=== PATIENT | female | born 1990 | race African-American/Black ===

== ENCOUNTER 2017-10-05 16:51 | Emergency (ER) | payer OTHER ==
[~2017-10-05 16:51] MED LIST: FLEXERIL 5MG TAB5 MG PO; GOOD SENSE IBU200 MG PO; IBUPROFEN800 M1 PO; LAMOTRIGINE ER50 MG PO; LAMOTRIGINE200 M1 PO; NEXPLANON68 MG; NOVAPLUS V0.09 MG/Ac INH; TYLENOL XSTR500 MG PO; VITAMIN D50000 IU PO
--- NOTE | 2017-10-05 17:50 | ED PSYCHIATRIC COMPLAINT ---
See Addendum History of Present Illness General Chief Complaint: Psychiatric Related Complaint Stated Complaint: BIBA FOR +SI Source: patient Exam Limitations: no limitations Vital Signs & Intake/Output Vital Signs & Intake/Output Vital Signs Date Time Temp Pulse Resp B/P B/P Pulse O2 O2 Flow FiO2 Mean Ox Delivery Rate 10/06 0827 98.0 95 18 118/64 98 Room Air 10/06 0609 99.1 100 18 141/78 98 Room Air 10/05 2308 99.3 73 16 130/71 99 Room Air 10/05 1959 99.0 95 20 150/89 100 Room Air 10/05 1725 98 Room Air 10/05 1717 98.7 77 20 117/72 99 Room Air ED Intake and Output 10/06 0000 10/05 1200 Intake Total 0 Output Total Balance 0 Intake, Oral 0 Allergies Uncoded Allergies: BED BUG VENUM (Severe, BODY EDEMA 03/09/12) FAKE JEWELERY (12/09/10) Triage Note: BIBA FROM HOME FOR SI. STATES DOESNT HAVE PLAN Triage Nurses Notes Reviewed? yes : No Patient currently breastfeeds: No HPI: Patient presents for evaluation of suicide ideation. Patient states that this afternoon while at work she "cold out" apparently in some despair. Her boss came to speak with her and she admitted that she was feeling suicidal. Her boss then called 911. Patient admits to being somewhat irritated at the fact that she was brought to the emergency department. She states she had no plan to commit suicide specifically and felt she would simply go home and clean and watch TV. (Naina RODRIGUEZ,Chris Anaya) Reconcile Medications Cholecalciferol (Vitamin D3) (Vitamin D3) 400 UNIT TABLET 1 TAB PO DAILY VITAMIN SUPPORT (Reported) Citalopram Hydrobromide (Citalopram HBr) 20 MG TABLET 1 TAB PO DAILY MENTAL HEALTH (Reported) Lamotrigine (Lamotrigine ER) 300 MG TAB.ER.24 1 TAB PO QPM MENTAL HEALTH ( Reported) Metformin HCl 500 MG TABLET 1 TAB PO BID DIABETES (Reported) Prazosin HCl 1 MG CAPSULE 3 CAP PO QPM MENTAL HEALTH (Reported) (Chris Baxter DO) Past History Travel History Traveled to [place] past 21 day No Medical History Any Pertinent Medical History? 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 No (Naina RODRIGUEZ,Chris Anaya) Review of Systems Review of Systems Constitutional: Reports: no symptoms. EENTM: Reports: no symptoms. Respiratory: Reports: no symptoms. Cardiovascular: Reports: no symptoms. GI: Reports: no symptoms. Genitourinary: Reports: no symptoms. Musculoskeletal: Reports: no symptoms. Skin: Reports: no symptoms. Neurological/Psychological: Reports: see HPI. Hematologic/Endocrine: Reports: no symptoms. Immunologic/Allergic: Reports: no symptoms. All Other Systems: Reviewed and Negative (Naina RODRIGUEZ,Chris Anaya) Physical Exam Physical Exam General Appearance: SEE BELOW Neurological/Psychiatric: SEE BELOW Comments: General: Alert, calm, cooperative Head: Normocephalic, atraumatic Eyes: Normal inspection, no nystagmus, EOMI Ears: Normal inspection Nose: Normal inspection Throat: Moist mucosa Neck: Supple, no goiter Heart: Regular rate and rhythm, no murmurs rubs or gallops Lungs: Clear to auscultation bilaterally with good air entry Abdomen: Soft nontender nondistended, normal bowel sounds Chest: Nontender Extremities: Normal range of motion grossly, no tremors present, no cyanosis clubbing or edema of the upper extremities Neurologic: cranial nerves II through XII grossly intact, speech clear, gait normal Psychiatric: No apparent delusions or hallucinations, no pressured speech or thought blocking SAD PERSONS Done? DEFERRED TO CRISIS (Naina RODRIGUEZ,Chris Anaya) Progress Differential Diagnosis: DEPRESSION, ANXIETY, BIPOLAR DISORDER, PERSONALITY DISORDER Plan of Care: Orders Procedure Date/time Status Regular Diet 10/06 B Active ETHANOL 10/05 1842 Complete CBC WITHOUT DIFFERENTIAL 10/05 1842 Complete BASIC METABOLIC PANEL 10/05 1842 Complete Continuous Observation Monitor 10/05 1750 Active ED CRISIS PSYCH CONSULT 10/05 175 Active URINE DRUG SCREEN FOR ER ONLY 10/05 1728 Complete Current Medications Sig/Lady Start time Last Medication Dose Stop Time Status Admin Cholecalciferol 400 IU DAILY 10/06 899 UNVr 10/06 (Vitamin D) 08 Citalopram 20 MG DAILY 10/06 899 UNVr 10/06 Hydrobromide 0844 (Celexa) Lamotrigine 300 MG DAILY 10/06 899 CAN (LaMICtal) Lamotrigine 150 MG BID 10/06 899 UNVr 10/06 (LaMICtal) 0844 Metformin HCl 500 MG 0800,1700 10/06 08 UNVr 10/06 (Glucophage) 0844 Prazosin HCl 3 MG AT BEDTIME 10/05 2099 UNVr 10/05 (Minipress 5 MG) 220 Laboratory Tests 10/05/17 1910: Anion Gap 11, Estimated GFR > 60, BUN/Creatinine Ratio 5.6 L, Glucose 97, Calcium 9.1, CBC w Diff NO MAN DIFF REQ, RBC 4.29, MCV 86.8, MCH 29.5, MCHC 33.9 , RDW 12.7, MPV 7.2 L, Gran % 54.5, Lymphocytes % 38.7, Monocytes % 4.8, Eosinophils % 1.4, Basophils % 0.6, Absolute Granulocytes 3.2, Absolute Lymphocytes 2.3, Absolute Monocytes 0.3, Absolute Eosinophils 0.1, Absolute Basophils 0, Serum Alcohol < 10.0 10/05/17 1730: Urine Opiates Screen < 100, Methadone Screen 50, Barbiturate Screen < 60, Ur Phencyclidine Scrn < 6.00, Amphetamines Screen < 100, U Benzodiazepines Scrn < 85, Urine Cocaine Screen < 50, Urine Cannabis Screen < 5.00 Comments: 10/05/2017 7:47:30 PM 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 (Naina RODRIGUEZ,Chris Anaya) Hand-Off Endorsed To: Chris Baxter DO Endorsed Time: 0700 Pending: consult (RE-EVAL) (Chris RODRIGUEZ,Desmond Brady) Departure Departure Condition: Stable Referrals: Amanda Narayan APRN (PCP/Family) Departure Forms: Customer Survey General Discharge Information (Naina RODRIGUEZ,Chris Anaya) Departure Disposition: STILL A PATIENT Clinical Impression Primary Impression: Depression Secondary Impressions: Suicidal ideation (Chris RODRIGUEZ,Desmond Brady) Departure Comments 10/06/17 9:43 AM Patient was signed out to me by Dr. Perez. She is pending disposition by crisis. (Chris Baxter DO)
[2017-10-05 19:21] LABS: ABSOLUTE BASOPHIL COUNT 0 /CUMM (0.0-0.2); ABSOLUTE EOSINOPHIL COUNT 0.1 /CUMM (0.0-0.7); ABSOLUTE GRANULOCYTE CT 3.2 /CUMM (1.4-6.5); ABSOLUTE LYMPH COUNT 2.3 /CUMM (1.2-3.4); ABSOLUTE MONOCYTE COUNT 0.3 /CUMM (0.10-0.60); BASOPHIL % 0.6 % (0.0-2.0); EOSINOPHIL % 1.4 % (0-5); GRANULOCYTE % 54.5 % (42.2-75.2); HEMATOCRIT 37.2 % (37-47); MEAN CORPUSCULAR HGB 29.5 PG (27.0-31.0); MEAN CORPUSCULAR HGB CONC 33.9 G/DL (33.0-37.0); MEAN CORPUSCULAR VOLUME 86.8 FL (81.0-99.0); MEAN PLATELET VOLUME 7.2 FL (7.4-10.4); PLATELET COUNT 276 /CUMM (130-400); RBC DISTRIBUTION WIDTH 12.7 % (11.5-14.5); RED BLOOD CELL CT 4.29 /CUMM (4.20-5.40); WHITE BLOOD CELL COUNT 5.9 /CUMM (4.8-10.8)
--- NOTE | 2017-10-05 20:12 | ED PSYCH CRISIS CONSULTATION ---
See Addendum Crisis Consult Basic Assessment Date of Consult: 10/05/17 Responsible Person/Accompanied By: PASCUAL and on a PEER Insurance Authorization: Insurance #1: Insurance name: JW NIXON Phone number: Policy number: [id number] Group number: Authorization number: ED Provider: Patient's ED Provider: Chris Chew MD Primary Care Physician: Patient's PCP: Amanda Narayan APRN PCP's Current Psychiatrist: [facility] Chief Complaint: Psychiatric Related Complaint Patient's Quote: "Um, my boss being a nosy body." Present Illness: The patient is a 27 year old, engaged female presenting to the ED on a PEER after calling out of work for suicidal ideations. She presents alert and oriented, calm and cooperative. She reports that she has been experiencing increased stress and therefore has noticed an increase in her mental health symptoms. She is diagnosed with Bipolar Disorder and is treated at [facility], weekly with therapy and medication management. She states that she has been attending therapy and taking her medications as prescribed, noting that they are working "because that's what everyone tells me." She does admit to being suicidal earlier today, however states that now she has turned to irritation because she is still in ED. She denies any current SI or HI. She does have a history of suicide attempts, noting the last one was in high school, however states she is not able to recall how she attempted. She does report other attempts, in which she tried to jump off a balcony or into traffic, however states each time "she wore a hoody," and it was easy for someone to pull her back. When asked about the PEER and her discussing "being in a casket and that she wanted liposuction when she dies," she reports that "she has a morbid sense of humor." She reports having hallucinations since she has been in the ED, seeing bed bugs. She reports that she had bed bugs from [id number] and therefore now sees them, when she is really stressed, noting that she knows they are not real. She states that her depression is a 7.5 out of 10 and anxiety an 8 out of 10, 10 being the most severe. She has been sleeping less, noting only 3-5 hours a night, secondary to stress. She reports that she has had increased stress, because her fiance is not working they are struggling to pay the bills. 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 She states that she has used the majority of her savings to pay the bills and has not paid credit cards, therefore has had a decrease in her credit score. She is currently in school at [employer], studying Fine Arts and has 2 years left in the program. She resides with her fiance of 8 years and has no children. She would like to be discharged home to follow up with [facility]. SW spoke to her fiance, Jitendra García ([phone]), for collateral information. Jitendra confirms that she has "had a stress build up and no outlet." Fransisco states that the patient has been stating that she was suicidal, however has not made any attempts. He states that she has never made a suicide attempt in the 8 years that they have been together. He reports that he feels comfortable with her coming home and has no concern for her safety, because there is a good support network with him and their roommates. Patient's Address: [address] [place] [address] Other Who Do You Live With? Significant Other (and roommates) Family/Informants Interviewed: Aaliyah García- [phone] Allergies - Uncoded Allergies: BED BUG VENUM (Severe, BODY EDEMA 03/09/12) FAKE JEWELERY (12/09/10) Current Medications - Scheduled Medications Ibuprofen 800 MG TABLET 1 TAB PO TID PAIN #90 (Reported) Entered as Reported by Kyung Goncalves on 07/22/171934 Lamotrigine (Lamotrigine ER) 50 MG TAB.ER.24 1 TAB PO DAILY SZ #30 (Reported) Entered as Reported by Kyung Goncalves on 07/22/171934 Miscellaneous Medications Etonogestrel (Nexplanon) 68 MG IMP CONTROL (Reported) Entered as Reported by Paulette Lyons on 04/08/15 1522 Laboratory Results: Laboratory Tests 10/05/170: Anion Gap 11, Estimated GFR > 60, BUN/Creatinine Ratio 5.6 L, Glucose 97, Calcium 9.1, CBC w Diff NO MAN DIFF REQ, RBC 4.29, MCV 86.8, MCH 29.5, MCHC 33.9 , RDW 12.7, MPV 7.2 L, Gran % 54.5, Lymphocytes % 38.7, Monocytes % 4.8, Eosinophils % 1.4, Basophils % 0.6, Absolute Granulocytes 3.2, Absolute Lymphocytes 2.3, Absolute Monocytes 0.3, Absolute Eosinophils 0.1, Absolute Basophils 0, Serum Alcohol < 10.0 10/05/17 1730: Urine Opiates Screen < 100, Methadone Screen 50, Barbiturate Screen < 60, Ur Phencyclidine Scrn < 6.00, Amphetamines Screen < 100, U Benzodiazepines Scrn < 85, Urine Cocaine Screen < 50, Urine Cannabis Screen < 5.00 Past History Past Medical History Neurological: seizure EENT: NONE Cardiovascular: NONE Respiratory: asthma Gastrointestinal: NONE Hepatic: NONE Renal: NONE Musculoskeletal: NONE Psychiatric: bipolar disease, ADHD Endocrine: NONE Blood Disorders: NONE Cancer(s): 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 Physical Limitations (Interventions): None noted Psychiatric Treatment History Psych Treatment Psychiatric Treatment Yes Inpatient Treatment No (Pt. denies) Outpatient Treatment Yes Location of Treatment [facility] Reason for Treatment Bipolar Disorder and PTSD Dates of Treatment Current Response to Treatment She states that people tell her that her medications are helping her. Diagnosis by History: Bipolar Disorder- Per pt. Substance Use/Abuse History Drug Use/Abuse Substances Used/Abused No (Pt. denies) First Use N/A Last Used N/A How much used/taken N/A How often N/A For how long N/A Route of use N/A Substance Abuse Treatment Substance Abuse Treatment Past Substance Abuse TX No Inpatient Treatment No Outpatient Treatment No Location of Treatment N/A Reason for Treatment N/A Dates of Treatment N/A Response to Treatment N/A Comments: The patient denies any drug or alcohol abuse, however her breathalyzer was .003. Current Mental Status Mental Status Orientation: Person, Place, Situation Affect: Labile Speech: WNL Neuro-vegetative: Sleep Disturbance Appearance Appearance- Dress/Hygiene: The patient was sitting on the bed, wearing a hospital top and her own Batman pajama pants, neat clear and well groomed. Behaviors Thought Process: WNL Thought Content: Visual Hallucinations, She notes that she sees bed bugs when she is very stressed out. Memory: WNL Insight: WNL SI/HI Risk Assessment Past Suicidal Ideation/Attempts Yes Current Suicidal Ideation/Att No Past Homicidal Ideation/Att: No Current Homicidal Ideation/Attempts No Degree of Intent: She states that she was suicidal eralier today, however not now. She states that she has a history of siucide attempts, however has not attempted to kill herself since High School. Danger To: Self Risk Factors: high anxiety/distress, history of suicide atmpts Lethality Ratin PTSD Checklist PTSD Done? pt unable to participate (admits to trauma and ptsd) ED Management Sitter: Yes Restraints: No DSM5/PS Stressors/Medical Prob Diagnosis' (DSM 5, Stressors, Medical): F31.9 Unspecified Bipolar Disorder Medical: Seizure Stressors: Finances, school Current GAF: 35 Comments: N/A Departure Disposition Psych Medical Clearance Date: 10/05/17 Medically Cleared at: 1900 Time Started: 1900 Time Ended: 1999 Psychiatrist Consulted: Dr. Ellis Date Disposition Established: 10/05/17 Time Disposition Established: 2029 Plan for Disposition - Modality: Hold over for reassessment- On Peer Rationale for Disposition: The patient presents on a PEER after calling out of work for suicidal ideations. She has a long history of Bipolar Disorder and is treated at [facility]. She reports an increase in stressors and an increase in depression and anxiety. She states that she was suicidal today and wanted to spend the day with family to watch her. She is denying SI / HI because she is now irritated. She reports that she has been seeing bed bugs, as she normally does when she is stressed out, however states that she knows they are hallucinations. Case discussed with Dr. Ellis and given her SI, increase in symptoms and decrease in sleep, he would like to hold her over for reassessment in the AM. Additional Instructions: N/A Referrals Amanda Narayan APRN (PCP/Family)
[2017-10-06] MEDS ORDERED: METFORMIN HCL500 M3 PO (09:12)
[2017-10-06] MEDS ORDERED: CITALOPRAM HBR20 MG PO (09:13)
[2017-10-06] MEDS ORDERED: LAMOTRIGINE ER300 MG PO (09:13)
[2017-10-06] MEDS ORDERED: PRAZOSIN HCL1 M1 PO (09:14)
[2017-10-06] MEDS ORDERED: VITAMIN D3400 UNI1 PO (09:14)
[2017-10-06 10:28] VITALS: BP 116/76
== END 2017-10-06 10:36 ==
LOC: ERH 16:51
PROVIDERS: Emergency Medicine
DX: F32.9 Major depressive disorder, single episode, unspecified (principal); R45.851 Suicidal ideations
CPT/HCPCS: 80307; G0480

== ENCOUNTER 2017-10-16 18:10 | Emergency (ER) | payer OTHER ==
[~2017-10-16] VITALS: Ht 152.4 cm; Wt 108.9 kg
[~2017-10-16 18:10] MED LIST changes: +CITALOPRAM HBR20 MG PO; +LAMOTRIGINE ER300 MG PO; +METFORMIN HCL500 M3 PO; +PRAZOSIN HCL1 M1 PO; +VITAMIN D3400 UNI1 PO
--- NOTE | 2017-10-16 18:45 | ED NEURO DEFICIT/STROKE ---
History of Present Illness General Chief Complaint: Seizure Stated Complaint: BIBA SEIZURE/FALL Source: patient, family Exam Limitations: no limitations Vital Signs & Intake/Output Vital Signs & Intake/Output Vital Signs Date Time Temp Pulse Resp B/P B/P Pulse O2 O2 Flow FiO2 Mean Ox Delivery Rate 10/16 2032 98.2 73 20 134/81 99 Room Air 10/16 1821 86 18 148/73 98 Room Air ED Intake and Output 10/17 0000 10/16 1200 Intake Total Output Total Balance Patient 240 lb Weight Weight Reported by Patient Measurement Method Allergies Uncoded Allergies: BED BUG VENUM (Severe, BODY EDEMA 03/09/12) RYE (Severe, THROAT CLOSING 10/16/17) FAKE JEWELERY (12/09/10) Reconcile Medications Cholecalciferol (Vitamin D3) (Vitamin D3) 400 UNIT TABLET 1 TAB PO DAILY VITAMIN SUPPORT (Reported) Citalopram Hydrobromide (Citalopram HBr) 20 MG TABLET 1 TAB PO DAILY MENTAL HEALTH (Reported) Lamotrigine (Lamotrigine ER) 300 MG TAB.ER.24 1 TAB PO QPM MENTAL HEALTH ( Reported) Metformin HCl 500 MG TABLET 1 TAB PO BID DIABETES (Reported) Prazosin HCl 1 MG CAPSULE 3 CAP PO QPM MENTAL HEALTH (Reported) Triage Note: BIBA S/P UNWITNESSED SEIZURE AND FALL DOWN 4-5 STAIRS. PER PATIENT SHE HAD A "MINI SEIZURE" AND FELL DOWN THE STAIRS. PATIENT HAS NO OBVIOUS SIGNS OF INJURY TO HEAD OR FACE. PATIENT STATES "I DONT REMEMBER FALLING DOWN THE STAIRS, I JUST REMEMBER WAKING UP". PATIENT ARRIVES ALERT, ORIENTED, SPEECH CLEAR, PATIENT COLLARED BY EMS FOR PRECAUTION. PATIENT REPORTS NECK TENDERNESS AND GENERALIZED PAIN. PATIENT ABLE TO ANSWER ALL QUESTIONS APPROPRIATELY. PATIENT PLACED ON GUIDE DOG TRAINER, VITALS OBTAINED. +CMS PRESENT IN ALL 4 EXTREMITIES. Triage Nurses Notes Reviewed? yes : No Patient currently breastfeeds: No HPI: 27 yo F PMH Asthma, Epilepsy (on lamictal), Bipolar disorder presenting with fall, seizure. Patient states that she remembers walking down the stairs, then waking up at the foot of the stairs with her co-worker standing over her, per EMS co-worker witnessed <1 min of tonic clonic activity with some post ictal confusion, patient fell on the stairs and slid down several steps, unclear head trauma, c-collar placed by EMS. On arrival C/O headache, neck pain and "whole body pain except my left leg." Patient states that she has been stressed recently and sleeping less than usual, but denies SI or toxic ingestions. Patient states that she been in her usual state of kamini without fevers, chills, chest pain, SOB, palpitations, AP, N/V/D/C, urinary Sx, headache, neck pain, neck stiffness, or focal neurologic Sx. (Sanchez Franco MD) Past History Travel History Traveled to [place] past 21 day No Medical History Any Pertinent Medical History? 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 Yes (Sanchez Franco MD) Review of Systems Review of Systems Constitutional: Reports: see HPI. EENTM: Reports: no symptoms. Respiratory: Reports: no symptoms. Cardiovascular: Reports: see HPI. GI: Reports: no symptoms. Genitourinary: Reports: no symptoms. Musculoskeletal: Reports: no symptoms. Skin: Reports: no symptoms. Neurological/Psychological: Reports: see HPI. Hematologic/Endocrine: Reports: no symptoms. Immunologic/Allergic: Reports: no symptoms. All Other Systems: Reviewed and Negative (Sanchez Franco MD) Physical Exam Physical Exam General Appearance: well developed/nourished, no apparent distress, alert Head: atraumatic Eyes: Bilateral: PERRL, EOMI. Ears, Nose, Throat: normal ENT inspection, moist mucous membrane Neck: normal inspection, full range of motion Respiratory: normal breath sounds, no respiratory distress, lungs clear Cardiovascular: regular rate/rhythm, normal peripheral pulses Gastrointestinal: normal bowel sounds, soft, non-tender Back: normal inspection, no vertebral tenderness Cranial Nerves: PERRL Comments: HEENT: Atraumatic, no signs of tongue trauma C-spine: Mild upper midline c-spine TTP Chest: Mild TTP over entirety of anterior and posterior chest wall without point TTP or crepitus Abdomen: Soft and non-TTP throughout Back: No midline vertebral bony point TTP Extremties: Atrauamtic, Full ROM without pain Neuro: Cranial nerves II-XII intact as tested, no pronator drift, normal strength and sensation throughout bilateral upper and lower extremities, no normal inbhmt-[id number]-[id number] and usay-sm-ljfs testing. Core Measures CVA/TIA Diagnosis: No Sepsis Present: No Sepsis Focused Exam Completed? No (Salvador RODRIGUEZ,Sanchez) Progress Differential Diagnosis: acute glaucoma, Chew's Palsy, drug intoxication, electrolyte imbalance, encephalitis, hypoglycemia, intracranial Hem., intracranial mass/tumor, meningitis, migraine MARSH, seizure disorder, stroke, subarachnoid Hem., vertebrobasilar insuff. Plan of Care: Orders Procedure Date/time Status PROLACTIN 10/17 1843 Complete PHOSPHORUS 10/17 1843 Complete MAGNESIUM 10/17 1843 Complete LACTIC ACID 10/17 1843 Complete CBC WITHOUT DIFFERENTIAL 10/17 1843 Complete BASIC METABOLIC PANEL 10/17 1843 Complete URINE 10/17 1827 Complete EKG 10/16 1826 Active Laboratory Tests 10/16/171921: Urine Test NEGATIVE 10/16/171912: Anion Gap 11, Estimated GFR > 60, BUN/Creatinine Ratio 6.3 L, Glucose 92, Lactic Acid 1.7, Calcium 9.1, Phosphorus 2.7, Magnesium 1.9, Prolactin 32.5 H, CBC w Diff NO MAN DIFF REQ, RBC 4.28, MCV 89.0, MCH 29.4, MCHC 33.0, RDW 13.2, MPV 7.6, Gran % 64.2, Lymphocytes % 25.8, Monocytes % 7.6, Eosinophils % 2.1, Basophils % 0.3, Absolute Granulocytes 4.2, Absolute Lymphocytes 1.7, Absolute Monocytes 0.5, Absolute Eosinophils 0.1, Absolute Basophils 0 Physician MDM: 27 yo F PMH Asthma, Epilepsy (on lamictal), Bipolar disorder presenting with fall, seizure. VSS, exam as above. DDx: Primary seizure, less likely metabolic derrangement, ICH, low concern for significant traumatic injury. Given ibuprofen with marked improvement in pain. CMP, CBC, Mg, Phos, Lactate unremarkable, prolactin mildly elevated, probably true seizure rather than syncope. CT head/c-spine and CXR without acute traumatic injury. On re- examination patient resting comfortably, pain resolved, ambulatory with an even gait without assistance, no recurrent seizures or new neurologic Sx in ED. D/Jignesh with return precautions, plan for close f/u with PMD for lamictal level (unable to send here, though patient notes he dose was just increased). Initial ED EKG: NSR (Salvador RODRIGUEZ,Sanchez) Departure Departure Disposition: HOME OR SELF CARE Condition: Stable Clinical Impression Primary Impression: Seizure Referrals: Amanda Narayan APRN (PCP/Family) Additional Instructions: Continue your medications as prescribed. Follow up with your primary care physician in the next 2-3 days. Return to the ED for any new, worsening, or concerning symptoms. Departure Forms: Customer Survey General Discharge Information (Salvador RODRIGUEZ,Sanchez) Resident Co-Sign Statement Statement: ED Attending supervision documentation- x I saw and evaluated the patient. I have also reviewed all the pertinent lab results and diagnostic results. I agree with the findings and the plan of care as documented in the Resident's documentation. [] I have reviewed the ED Record and agree with the Resident's documentation. [] Additions or exceptions (if any) to the Resident's note and plan are summarized below: [] (Erin RODRIGUEZ,Tomi)
[2017-10-16 19:23] LABS: ABSOLUTE BASOPHIL COUNT 0 /CUMM (0.0-0.2); ABSOLUTE EOSINOPHIL COUNT 0.1 /CUMM (0.0-0.7); ABSOLUTE GRANULOCYTE CT 4.2 /CUMM (1.4-6.5); ABSOLUTE LYMPH COUNT 1.7 /CUMM (1.2-3.4); ABSOLUTE MONOCYTE COUNT 0.5 /CUMM (0.10-0.60); BASOPHIL % 0.3 % (0.0-2.0); EOSINOPHIL % 2.1 % (0-5); GRANULOCYTE % 64.2 % (42.2-75.2); HEMATOCRIT 38.2 % (37-47); MEAN CORPUSCULAR HGB 29.4 PG (27.0-31.0); MEAN PLATELET VOLUME 7.6 FL (7.4-10.4); PLATELET COUNT 303 /CUMM (130-400); RBC DISTRIBUTION WIDTH 13.2 % (11.5-14.5); RED BLOOD CELL CT 4.28 /CUMM (4.20-5.40); WHITE BLOOD CELL COUNT 6.5 /CUMM (4.8-10.8)
--- NOTE | 2017-10-16 20:13 | RADIOLOGY REPORT ---
EXAMINATION: XR CHEST CLINICAL INFORMATION: Chest pain status post fall COMPARISON: 03/25/2008 TECHNIQUE: 2 views of the chest were obtained. FINDINGS: No significant abnormality is noted involving the heart, lungs, mediastinum, bony thorax or soft tissues. IMPRESSION: No acute pulmonary disease.
--- NOTE | 2017-10-16 20:14 | CT SCAN REPORT ---
EXAMINATION: CT HEAD WITHOUT CONTRAST CT CERVICAL SPINE WITHOUT CONTRAST CLINICAL INFORMATION: Headache status post fall. Upper spinal tenderness to palpation. COMPARISON: Head CT 08/14/2013. TECHNIQUE: Axial noncontrast images of the head and cervical spine were obtained. Reformatted images were reviewed. DLP: 973 mGy-cm FINDINGS: HEAD CT: No intracranial hemorrhage or territorial infarction. No extra-axial fluid collection. No mass effect or midline shift. No abnormal attenuation within the brain parenchyma. Incidental cavum septum pellucidum/cavum vergae. No subgaleal hematoma. No acute calvarial fracture. The paranasal sinuses and mastoid air cells are aerated. CERVICAL SPINE CT: No fracture or dislocation. There is straightening of normal cervical lordosis, which is a nonspecific finding. No prevertebral soft tissue swelling. No widening of the atlantoaxial interval. No significant degenerative changes. IMPRESSION: 1. No acute intracranial pathology. 2. No acute cervical spine pathology.
[2017-10-16 20:33] VITALS: BP 134/81
== END 2017-10-16 20:34 ==
LOC: ERH 18:10
PROVIDERS: Student in an Organized Health Care Education/Training Program
DX: R56.9 Unspecified convulsions (principal)
CPT/HCPCS: 71046; 81025; 93005; 93010

== ENCOUNTER 2018-02-28 19:11 | Emergency (ER) | payer OTHER ==
[2018-02-28 19:26] VITALS: BP 125/83
[2018-02-28 20:39] LABS: ABSOLUTE BASOPHIL COUNT 0 /CUMM (0.0-0.2); ABSOLUTE EOSINOPHIL COUNT 0.1 /CUMM (0.0-0.7); ABSOLUTE GRANULOCYTE CT 4.4 /CUMM (1.4-6.5); ABSOLUTE LYMPH COUNT 2.1 /CUMM (1.2-3.4); ABSOLUTE MONOCYTE COUNT 0.4 /CUMM (0.10-0.60); BASOPHIL % 0.3 % (0.0-2.0); EOSINOPHIL % 1.2 % (0-5); GRANULOCYTE % 63.2 % (42.2-75.2); HEMATOCRIT 37.5 % (37-47); MEAN CORPUSCULAR HGB 29.9 PG (27.0-31.0); MEAN CORPUSCULAR HGB CONC 33.4 G/DL (33.0-37.0); MEAN CORPUSCULAR VOLUME 89.5 FL (81.0-99.0); MEAN PLATELET VOLUME 7.7 FL (7.4-10.4); PLATELET COUNT 326 /CUMM (130-400); RBC DISTRIBUTION WIDTH 12.6 % (11.5-14.5); RED BLOOD CELL CT 4.19 /CUMM (4.20-5.40); WHITE BLOOD CELL COUNT 6.9 /CUMM (4.8-10.8)
--- NOTE | 2018-02-28 20:52 | CT SCAN REPORT ---
EXAMINATION: CT ABDOMEN AND PELVIS WITHOUT CONTRAST CLINICAL INFORMATION: Epigastric pain. Guarding. Changes of bowel movement. COMPARISON: None TECHNIQUE: Multidetector volumetric imaging was performed from the superior aspect of the liver through the pubic symphysis. Sagittal and coronal reformatted images were obtained on the technologist's workstation. DLP: 762.92 mGy-cm FINDINGS: LUNG BASES: The visualized lung bases are unremarkable. LIVER, GALLBLADDER, AND BILIARY TREE: The liver is normal in size, shape, and attenuation. No focal hepatic lesion or biliary ductal dilatation is present. The gallbladder is unremarkable with no evidence of radiopaque gallstones, gallbladder wall thickening, or obvious pericholecystic inflammatory changes. PANCREAS: Unremarkable. SPLEEN: Unremarkable. ADRENAL GLANDS: Unremarkable. KIDNEYS AND URETERS: The kidneys are normal in size, shape, and attenuation. No hydronephrosis, hydroureter, or calculi seen. No perinephric stranding. BLADDER: Unremarkable. GASTROINTESTINAL TRACT: The small and large bowel are unremarkable. The appendix is unremarkable. ABDOMINAL WALL: No significant hernia is appreciated. LYMPH NODES: Normal. VASCULAR: Unremarkable. PELVIC VISCERA: The uterus is anteverted. There is no adnexal abnormality. OSSEOUS STRUCTURES: Unremarkable. IMPRESSION: No significant abnormality.
--- NOTE | 2018-02-28 22:13 | ED GI/GU/ABDOMINAL COMPLAINT ---
History of Present Illness General Chief Complaint: Abdominal Pain/Flank Pain Stated Complaint: ABD PAIN X1 WEEK, YELLOW/BLOODY STOOL Source: patient Exam Limitations: no limitations Vital Signs & Intake/Output Vital Signs & Intake/Output Vital Signs Date Time Temp Pulse Resp B/P B/P Pulse O2 O2 Flow FiO2 Mean Ox Delivery Rate 02/28 1926 98.3 89 20 125/83 96 Room Air Allergies Uncoded Allergies: BED BUG VENUM (Severe, BODY EDEMA 03/09/12) RYE (Severe, THROAT CLOSING 10/16/17) FAKE JEWELERY (12/09/10) Reconcile Medications Cholecalciferol (Vitamin D3) (Vitamin D3) 400 UNIT TABLET 1 TAB PO DAILY VITAMIN SUPPORT (Reported) Citalopram Hydrobromide (Citalopram HBr) 20 MG TABLET 1 TAB PO DAILY MENTAL HEALTH (Reported) Dicyclomine HCl 10 MG CAPSULE 1 CAP PO TID abd pain Lamotrigine (Lamotrigine ER) 300 MG TAB.ER.24 1 TAB PO QPM MENTAL HEALTH ( Reported) Metformin HCl 500 MG TABLET 1 TAB PO BID DIABETES (Reported) Omeprazole 40 MG CAPSULE.DR 1 CAP PO DAILY acif reflux Prazosin HCl 1 MG CAPSULE 3 CAP PO QPM MENTAL HEALTH (Reported) Triage Note: PER PT BURNING IN ABD 10 DAYS AND NOW STOOL IS BLOODY AND YELLOW. DENIES NEW MEDS OR FOODS. LMP 02/12/18 Triage Nurses Notes Reviewed? yes ? n Is pt currently ? No Onset: Abrupt Duration: week(s):, constant Timing: recent history HPI: 27-year-old female comes into the emergency room for further evaluation of abdominal pain. Patient reports that she has been having mid abdomen pain for the last couple weeks. Patient reports some associated nausea but no vomiting. Some yellow bilestool. Blood tinged at times. She denies any fever. She denies any prior abdominal surgeries. Eating makes it better initially and then he gets worse within a couple hours after eating. (Taz Gibbons) Past History Travel History Traveled to [place] past 21 day No Medical History Any Pertinent Medical History? 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 No (Taz Gibbons) Review of Systems Review of Systems Constitutional: Reports: no symptoms. EENTM: Reports: no symptoms. Respiratory: Reports: no symptoms. Cardiovascular: Reports: no symptoms. GI: Reports: see HPI. Genitourinary: Reports: no symptoms. Musculoskeletal: Reports: no symptoms. Skin: Reports: no symptoms. Neurological/Psychological: Reports: no symptoms. Hematologic/Endocrine: Reports: no symptoms. Immunologic/Allergic: Reports: no symptoms. All Other Systems: Reviewed and Negative (Taz Gibbons) Physical Exam Physical Exam General Appearance: well developed/nourished, no apparent distress, alert, awake Head: atraumatic, normal appearance Eyes: Bilateral: normal appearance. Ears, Nose, Throat, Mouth: hearing grossly normal, moist mucous membrane Neck: normal inspection Respiratory: no respiratory distress Gastrointestinal: soft, tenderness Back: normal inspection Extremities: normal range of motion Neurologic/Psych: awake, alert, oriented x 3, normal gait, normal mood/affect Core Measures ACS in differential dx? No Sepsis Present: No Sepsis Focused Exam Completed? No (Taz Gibbons) Progress Differential Diagnosis: appendicitis, biliary colic, cholecystitis, diverticulitis, gastritis, peptic ulcer (duodenal), SBO, UTI/pyelo Plan of Care: Orders Procedure Date/time Status URINE 02/28 1926 Complete URINALYSIS 02/28 1926 Complete LIPASE 02/28 1926 Complete COMPREHENSIVE METABOLIC PANEL 02/28 1926 Complete CBC WITHOUT DIFFERENTIAL 02/28 1926 Complete Laboratory Tests 02/28/18 2015: Anion Gap 9, Estimated GFR > 60, BUN/Creatinine Ratio 5.0 L, Glucose 101 H, Calcium 9.4, Total Bilirubin 0.4, AST 20, ALT 22, Alkaline Phosphatase 68, Total Protein 7.7, Albumin 4.5, Globulin 3.2, Albumin/Globulin Ratio 1.4, Lipase 63, CBC w Diff NO MAN DIFF REQ, RBC 4.19 L, MCV 89.5, MCH 29.9, MCHC 33.4, RDW 12.6 , MPV 7.7, Gran % 63.2, Lymphocytes % 29.7, Monocytes % 5.6, Eosinophils % 1.2, Basophils % 0.3, Absolute Granulocytes 4.4, Absolute Lymphocytes 2.1, Absolute Monocytes 0.4, Absolute Eosinophils 0.1, Absolute Basophils 0 02/28/181927: Urine Color YEL, Urine Clarity HAZY H, Urine pH 8.0, Ur Specific [place] 1.020, Urine Protein NEG, Urine Ketones NEG, Urine Nitrite NEG, Urine Bilirubin NEG, Urine Urobilinogen 0.2, Ur Leukocyte Esterase TRACE H, Ur Microscopic SEDIMENT EXAMINED, Urine RBC FEW H, Urine WBC 1-3 H, Ur Epithelial Cells MANY H, Urine Mucus MANY H, Urine Hemoglobin NEG, Urine Glucose NEG, Urine Test NEGATIVE Diagnostic Imaging: Viewed by Me: CT Scan. Discussed w/RAD: CT Scan. Radiology Impression: PATIENT: DOMINICK JETER PRESENT AGE: 27 PATIENT ACCOUNT NO: [id number] : 92 LOCATION: [facility] ORDERING PHYSICIAN: Taz SALAZAR SERVICE DATE: 02/28/18-1925 EXAM TYPE: CAT - CT ABD & PELVIS W/O IV CONTRAS EXAMINATION: CT ABDOMEN AND PELVIS WITHOUT CONTRAST CLINICAL INFORMATION: Epigastric pain. Guarding. Changes of bowel movement. COMPARISON: None TECHNIQUE: Multidetector volumetric imaging was performed from the superior aspect of the liver through the pubic symphysis. Sagittal and coronal reformatted images were obtained on the technologist's workstation. DLP: 762.92 mGy-cm FINDINGS: LUNG BASES: The visualized lung bases are unremarkable. LIVER, GALLBLADDER, AND BILIARY TREE: The liver is normal in size, shape, and attenuation. No focal hepatic lesion or biliary ductal dilatation is present. The gallbladder is unremarkable with no evidence of radiopaque gallstones, gallbladder wall thickening, or obvious pericholecystic inflammatory changes. PANCREAS: Unremarkable. SPLEEN: Unremarkable. ADRENAL GLANDS: Unremarkable. KIDNEYS AND URETERS: The kidneys are normal in size, shape , and attenuation. No hydronephrosis, hydroureter, or calculi seen. No perinephric stranding. BLADDER: Unremarkable. GASTROINTESTINAL TRACT: The small and large bowel are unremarkable. The appendix is unremarkable. ABDOMINAL WALL: No significant hernia is appreciated. LYMPH NODES: Normal. VASCULAR: Unremarkable. PELVIC VISCERA: The uterus is anteverted. There is no adnexal abnormality. OSSEOUS STRUCTURES: Unremarkable. IMPRESSION: No significant abnormality. DICTATED BY: Moe Rosa MD DATE/TIME DICTATED:02/28/182028 [employer] BI DEVELOPER:RAMON DATE/TIME TRANSCRIBED:02/28/182028 CONFIDENTIAL, DO NOT COPY WITHOUT APPROPRIATE AUTHORIZATION. <Electronically signed in Other Vendor System> SIGNED BY: Moe Rosa MD 02/28/182051 Initial ED EKG: none (Taz Gibbons) Departure Departure Disposition: HOME OR SELF CARE Condition: Stable Clinical Impression Primary Impression: Abdominal pain Referrals: Amanda Narayan APRN (PCP/Family) Additional Instructions: Take Bentyl and omeprazole as prescribed. Follow-up with histology teacher. Return if any concerns worsening symptoms. Please go over all results of today's visit with your primary care doctor. Contact your primary care doctor to let them know you were here in the emergency room. There may be nonspecific findings which may not be related to your visit today here in the emergency room but may require further evaluation and chronic monitoring by your primary care doctor. If you had a laceration today the chance of foreign body always remains. You should follow-up with your primary care doctor for recheck in 3-5 days for a wound check. If you had an x-ray done there is a chance that a fracture could have been missed on initial read and you should follow-up with your primary care doctor for repeat x-rays if symptoms persist. If your blood pressure was elevated here in the emergency room please have rechecked by [facility] primary care doctor within the next 48. If you were prescribed a narcotic here in the emergency room or any type of controlled substances you're not allowed to drive while taking this medication or operate any type of heavy machinery. Narcotics can make you feel lightheaded dizziness nausea and can cause constipation. You may need to chicken picker a stool softener. Thank you for choosing [facility] emergency room. Please return to the emergency room immediately if you have any other concerns worsening of symptoms. Departure Forms: Customer Survey General Discharge Information Prescriptions: Current Visit Scripts Omeprazole 1 CAP PO DAILY #30 CAP Dicyclomine HCl 1 CAP PO TID #30 CAP Comments 03/01/2018 1:02:24 AM Patient clinically looks well. No acute findings and workup. Referred to histology teacher (Taz Gibbons) PA/[employer] SE[employer]ER Co-Sign Statement Statement: ED Attending supervision documentation- [] I saw and evaluated the patient. I have also reviewed all the pertinent lab results and diagnostic results. I agree with the findings and the plan of care as documented in the PA's/FLE[employer] MARK[employer] SELLER's documentation. [X] I have reviewed the ED Record and agree with the PA's/FLEA MARKET SELLER's documentation. [] Additions or exceptions (if any) to the PAs/FLEA MARKET SELLER's note and plan are summarized below: [] (Chris RODRIGUEZ,Desmond Brady)
[2018-02-28] MEDS ORDERED: DICYCLOMINE HCL10 M1 PO (22:21)
[2018-02-28] MEDS ORDERED: OMEPRAZOLE40 M1 PO (22:21)
== END 2018-02-28 22:30 ==
LOC: ERH 19:11
PROVIDERS: Physician Assistant Medical
DX: R10.9 Unspecified abdominal pain (principal); J45.909 Unspecified asthma, uncomplicated
CPT/HCPCS: 74176; 81001; 81025